=== PATIENT | male | born 1990 | race Caucasian/White ===

== ENCOUNTER → 2020-09-02 11:58 | Outpatient (CLI) | payer BC, SELFPAY ==
--- NOTE | 2020-09-02 12:02 | CT_ITS ---
PROCEDURE: CT ABDOMEN PELVIS W CON CLINICAL INDICATION: ABD WALL BULGE Abdominal hernia COMPARISON: No exams were available for comparison TECHNIQUE: IV Contrast: 75ML Isovue 370 Oral Contrast None Axial images obtained with sagittal and coronal reformats. All CT scans at the facility use one or more dose reduction, viz: automated exposure control, ma/kV adjustment per patient size (including targeted exams where dose is matched to indication, i.e. head), or iterative reconstruction technique. FINDINGS: LOWER THORAX: No acute finding ABDOMEN & PELVIS: The liver, spleen, pancreas, adrenal glands, and kidneys show no acute finding. No intestinal obstruction or free air. No evidence of appendicitis or diverticulitis. No pelvic mass, abnormal fluid collection, or focal inflammatory change of the pelvis. Bulging disc with central disc osteophyte complex noted at L5-S1. There is a small umbilical hernia containing fat.. The hernia sac is slightly directed cephalad. Urinary bladder is somewhat distended. There is a mild amount of retained colonic feces. IMPRESSION: Small umbilical hernia containing fat Bulging disc with small central disc osteophyte complex at L5-S1 Dictated by: Zhen Neal MD 09/02/2020 16:14 Zhen Neal MD in [place] 09/02/2020 16:14
== END ==
PROVIDERS: PCP Family Medicine; Visit Provider Nurse Practitioner Family
DX: R19.00 Intra-abdominal and pelvic swelling, mass and lump, unspecified site (principal)
CPT/HCPCS: 74177; Q9967

== ENCOUNTER 2024-04-27 11:52 | Outpatient (CLI) | payer BC, SELFPAY ==
[2024-04-27 13:23] LABS: Adenovirus,PCR Not Detected (NotDetected); Bordetella Pertussis Not Detected (NotDetected); Chlamydophila Pneumoniae, PCR Not Detected (NotDetected); Coronavirus 19, PCR Not Detected (NotDetected); Coronavirus 229E Not Detected (NotDetected); Coronavirus NL63 Not Detected (NotDetected); Coronavirus OC43 Not Detected (NotDetected); Coronovirus HKU1,PCR Not Detected (NotDetected); Human Metapneumovirus Not Detected (NotDetected); Influenza A, PCR Not Detected (NotDetected); Influenza AH1, 2009 Not Detected (NotDetected); Influenza AH1, PCR Not Detected (NotDetected); Influenza AH3,PCR Not Detected (NotDetected); Influenza B, PCR Not Detected (NotDetected); Mycoplasma Pneumoniae, PCR Not Detected (NotDetected); Parainfluenza 1, PCR Not Detected (NotDetected); Parainfluenza 2, PCR Not Detected (NotDetected); Parainfluenza 3, PCR Not Detected (NotDetected); Parainfluenza 4, PCR Not Detected (NotDetected); Respiratory Syncytial Virus Not Detected (NotDetected); Rhinovirus/Enterovirus Not Detected (NotDetected)
== END 2024-04-27 23:59 | disposition home or self-care (01) ==
LOC: LAB 11:53
PROVIDERS: PCP Family Medicine; Visit Provider Nurse Practitioner Family
DX: R05.9 Cough, unspecified (principal)
CPT/HCPCS: 87633

== ENCOUNTER 2024-10-20 14:53 | Outpatient (CLI) | payer BC, SELFPAY ==
--- OUTSIDE RECORDS SUMMARY | 2024-10-20 14:55 | XMS_ITS | Clinical Summary ---
Author Organization [facility] Address [address] [place] [id number] Phone [email or web address] Care Team Providers Care Dna Sequencing Associate Name Role Phone Martin Kumar MD Primary Care Provider [phone] Allergies Active Allergy Reactions Criticality Noted Date Comments Shellfish-Derived Products Sulfa Antibiotics 10/24/2020 Medications No known medications Active Problems No known active problems Social History Tobacco Use Types Packs/Day Years Used Date Smoking Tobacco: Never Smokeless Tobacco: Never Intimate Partner Violence Answer Date R ecorded Insults You Not on file 08/16/2020 Threatens You Not on file 08/16/2020 Screams at You Not on file 08/16/2020 Physically Hurt Not on file 08/16/2020 Intimate Partner Violence Score Not on file 08/16/2020 Depression Answer Date Recorded PHQ Total Score Not on file 10/27/2021 Stress Answer Date Recorded Stress in your Life Not on file 03/09/2024 Dealing with Stress 3 03/09/2024 Sex and Gender Information Value Date Recorded Sex Assigned at Not on file Legal Sex Male 8:47 AM CDT Gender Identity Not on file Sexual Orientation Not on file Last Filed Vital Signs Vital Sign Reading Time Taken Comments Blood Pressure 132/87 10/24/2020 3:23 PM EDT Pulse 87 10/24/2020 3:23 PM EDT Temperature 36.6 C (97.8 F) 10/24/2020 3:23 PM EDT Respiratory Rate 18 10/24/2020 3:23 PM EDT Oxygen Saturation 99% 10/24/2020 3:23 PM EDT Inhaled Oxygen Concentration - - Weight 92.5 kg (203 lb 14.4 oz) 06/26/2019 9:43 AM EST Height 190.5 cm (6' 3 ) 06/26/2019 9:43 AM EST Body Mass Index 25.49 06/26/2019 9:43 AM EST Plan of Treatment Health Maintenance Due Date Last Done Comments Dental Cleaning/Exam 1988 HIV Screening 1988 Hepatitis C Screening 1988 Annual Preventive Exam 2006 Hep B Infection Screening - Triple Screen 2006 Hepatitis B Immunization (1 of 3 - 19+ 3-dose series) 2007 Tetanus Diphtheria and Pertu ssis Immunization (1 - Tdap) 2007 Covid-19 Immunization (1 - 2 024-25 season) 2024 Influenza Immunization (Seas on Ended) 2025 HIB Immunization Aged Out No longer e ligible based on patient's age to complete this topic HPV Immunization Aged Out No longer e ligible based on patient's age to complete this topic Hepatitis A Immunization Aged Out No longer eligible based on patient's age to complete this topic Pneumococcal: Ped (0 to 5 Yr s) and At-Risk Member (6 to 64 Yrs) Aged Out No longer e ligible based on patient's age to complete this topic Polio Immunization Aged Out No longer eligible based on patient's age to complete this topic Varicella Immunization Aged Out No lo nger eligible based on patient's age to complete this topic Insurance [facility] [facility] [id number] [place] [address] Care Teams Dna Sequencing Associate Relationship Specialty Start Date End Date Martin Kumar MD [address] [place] [address] LUCIUS ALARCON [id number] PCP - General Secretary Office Clerk 10/24/20
--- NOTE | 2024-10-20 14:56 | US_ITS ---
FINAL REPORT CLINICAL HISTORY: lt inguinal hernia FINDINGS: Limited sonographic images were obtained of the soft tissues in the left inguinal region. There is a heterogeneous focus in the region of the left inguinal canal which could represent a small hernia. IMPRESSION: Heterogeneous focus could represent small hernia at the area of interest. CT scan could better evaluate. Reviewed, Interpreted and Dictated by Parish Gonzalez MD Transcribed by Opal Prado Authenticated and [facility]
--- NOTE | 2024-10-20 14:56 | US_ITS ---
FINAL REPORT TECHNIQUE: Ultrasound images of the testicles were obtained bilaterally. Color Doppler images were obtained. CLINICAL HISTORY: LT SIDED INGUINAL HERNIA FINDINGS: The testicles are normal in size and echotexture bilaterally. Arterial flow is identified bilaterally. No intratesticular masses are identified. There are small hydroceles bilaterally. IMPRESSION: No evidence of testicular mass or torsion. Reviewed, Interpreted and Dictated by Parish Gonzalez MD Transcribed by Opal Prado Authenticated and . [facility]
== END 2024-10-20 23:59 | disposition home or self-care (01) ==
LOC: RAD 14:53
PROVIDERS: PCP Nurse Practitioner; Visit Provider Nurse Practitioner
DX: K40.90 Unilateral inguinal hernia, without obstruction or gangrene, not specified as recurrent (principal); R93.5 Abnormal findings on diagnostic imaging of other abdominal regions, including retroperitoneum
CPT/HCPCS: 76870; 76882

== ENCOUNTER 2024-11-04 11:51 | Outpatient (CLI) | payer BC, SELFPAY ==
--- OUTSIDE RECORDS SUMMARY | 2024-11-04 11:54 | XMS_ITS | Clinical Summary ---
Author Organization [facility] Address [address] [place] [address] Phone [email or web address] Care Team Providers Care Coder Operator Name Role Phone Martin Kumar MD Primary Care Provider [phone] Allergies Active Allergy Reactions Criticality Noted Date [...] patient's age to complete this topic Insurance [facility] [place] [facility] Address: [address] [place] [address] [id number] [place] [address] Care Teams Coder Operator Relationship Specialty Start Date End Date Martin Kumar MD [address] [place] [address] LUCI[place] ALARCON [id number] PCP - General Aircraft Stress Analyst 10/24/20
[2024-11-04 11:57] VITALS: BMI 26.2
[2024-11-04 12:11] LABS: Microscopic, Urine URINE MICROSCOPIC (MICROSCOPIC)
[2024-11-04 12:15] LABS: Bilirubin,Urine Negative (Negative); Color,Urine YELLOW (Yellow); Glucose,Urine (UA) Negative (Negative); Hematocrit 48.3 % (42.0-52.0); Hemoglobin 16.1 g/dL (14.1-18.0); Immature Granulocytes % 0.2 %; Ketones,Urine Negative (Negative); Leukocyte Esterase,Urine Negative (Negative); Mean Corpuscular HGB Conc 33.3 g/dL (31.8-35.4); Mean Corpuscular Hemoglobin 29.0 pg (27.0-31.2); Mean Corpuscular Volume 87.0 fl (80-94); Nucleated Red Blood Cells % 0 %; PH,Urine 6.0 (5.0-8.5); Platelet Count 269 K/mm3 (142-424); Protein,Urine Negative (Negative); Red Blood Count 5.55 M/mm3 (4.60-6.20); Red Cell Distribution Width-SD 37.7 fL; Specific Gravity, Urine <= 1.005 (1.005-1.030); Urobilinogen,Urine 0.2 EU/dl (0.2); White Blood Count 5.1 K/mm3 (4.8-10.8)
[2024-11-04 12:27] LABS: Bacteria,Urine Trace /lpf; WBC,Urine Occasional #/hpf (0-3)
[2024-11-04 12:38] LABS: Chloride 99 mmol/L (98-107); Sodium 140 mmol/L (136-145)
[2024-11-04 12:39] LABS: Potassium 4.3 mmoL/L (3.5-5.1)
[2024-11-04 12:42] LABS: Anion Gap 14.3 mEq/L (5-15); Blood Urea Nitrogen 19 mg/dl (9-20); Calcium 9.8 mg/dl (8.4-10.2); Carbon Dioxide 31 mmol/L (22.0-30.0); Creatinine Clearance Estimated 157 mL/min (50-200); Creatinine,Serum 0.90 mg/dl (0.66-1.25); Estimated Glomerular Filt Rate 95 ml/min (>60); GFR (African American) 116 ML/MIN (>60); Glucose 84 mg/dl (74-100)
== END 2024-11-04 23:59 | disposition home or self-care (01) ==
LOC: PREOP 11:52
PROVIDERS: PCP Family Medicine; Visit Provider Surgery
DX: Z01.812 Encounter for preprocedural laboratory examination (principal)
CPT/HCPCS: 80048; 81001; 85025

== ENCOUNTER 2024-11-27 06:02 | Day surgery (SDC) | payer BC, SELFPAY ==
[2024-11-05 13:59] VITALS: BMI 26.2
[2024-11-27] VITALS (11 sets, daily range): BP systolic 114–147; BP diastolic 57–91; PULSE 66–72; RESP 12–18; TEMP 36.2–43; O2SAT 94–98; BMI 26.2
[2024-11-27] MEDS: 0.9 % SODIUM CHLORIDE 1000ML 1,000 ML 25 ML IV (06:35)
--- NOTE | 2024-11-27 07:03 | EXP.ANES.CKL ---
[facility] Disclaimer: The information contained in this section may have been updated after the patient was seen, as this information can be updated by other users. Medical History No significant past medical history Surgical History History of surgical removal of pilonidal cyst History of umbilical hernia repair History of wisdom tooth extraction Family History Other Family history of diabetes mellitus Family history of leukemia Social History (Updated 11/27/24 @ 06:24 by Wendy Vargas RN) Smoking Status: Never smoker alcohol intake: never substance use type: denies use current occupational status: employed Travel in the last 8 weeks?: None household members: family housing: house Have you lived/traveled outside US in past 30 days?: No Contact w/someone who lives/traveled outside US past 30 days?: No Exposure to someone with infectious disease in past 14 days?: No Do you have a fever (greater than 100.4 F or 38 C)?: No Have you tested positive for COVID-19?: No Exposed to someone with COVID-19 in past 14 days?: No Do you have a sore throat?: No Do you have a cough?: No Do you have any weakness?: No Are you experiencing any nausea/vomitting?: No Do you have any diarrhea?: No Are you experiencing any unusual bleeding?: No Do you have any muscle aches/pain?: No Do you have any abdominal pain?: No Are you experiencing loss of taste or smell?: No [facility] Anesthesia Checklist Patient Identification Patient Identification: Arm Band and Verbal (Name & ) Structural Data Admitted From: Home Planned Operative Procedure/s: Open left inquinal hernia repair Consent for Planned Operative Procedure(s) Verified: Yes Verified Documents: Surgical Consent NPO Status Verified Time NPO: 00:00 Additional verifications Anesthesia Reactions: No Hx Blood Transfusions: No Blood Transfusion Reaction: No Airway Assessment Mallampati Score:: Class II C-Spine Mobility Assessed: Yes TMJ Mobility Assessed: Yes Dentition: Good Dentition Neurological Assessment Level of Consciousness: Awake, Alert and Appropriate Hx Seizures: No Numbness or tingling in extremities: No Anesthesia Plan Anesthesia Risk discussed: Yes Anesthesia Plan: Verified ASA Class: I Anesthesia Type: General
[2024-11-27] MEDS: LIDOCAINE 1% 20ML MDV 20 ML (07:30)
--- NOTE | 2024-11-27 08:22 | P.OP_ITS ---
Date of procedure: 11/27/24 Pre-op Diagnosis:: Left inguinal hernia Post-op Diagnosis:: Same Procedure performed:: Open left inguinal hernia Surgeon:: Cosmo Montaño MD [employer]ORTER CLERK:: Mendoza Chen Anesthesia: local and LMA Estimated blood loss (mL): 15 Operative findings:: Superior/lateral direct defect Concomitant indirect defect Operative note:: After informed consent was obtained the patient was taken to the operating room and placed in the supine position. General anesthesia with laryngeal mask airway was achieved. His abdomen and groin/scrotum were prepped and draped in a sterile fashion. After infiltration with local anesthetic an oblique left groin incision was made. A combination of sharp dissection and electrocautery was utilized to transect through Ranjit's fascia to the level of the external aponeurosis. The external aponeurosis was sharply opened. The contents of the canal were carefully elevated. A palpable indirect defect was noted. A superior/lateral direct defect was also noted. An extra-large PerFix plug was placed in the direct defect and secured with interrupted Ethibond. In a similar manner, a large PerFix plug was placed in the indirect defect and secured with Ethibond. The extra-large PerFix overlay was then secured to the shelving edge inferiorly and fascial margin superiorly with interrupted Ethibond. The external aponeurosis was reapproximated with running Vicryl suture. Ranjit's fascia was closed in a similar manner. Skin was then closed with running 3-0 Monocryl STRATAFIX in a subcuticular manner. Dressings were applied and the patient was transferred to recovery in stable condition. Condition: stable Disposition: PACU Specimens:: none Complications:: No immediate
--- NOTE | 2024-11-27 08:33 | P.PNANES_ITS ---
[facility] Anesthesia Record Part I Anesthesia Record I Intake, IV Amount: 700 Hydration: Adequate Estimated blood loss (mL): 0 Urine output (mL): 200 Blood Products used (#): none Blood Pressure: 147/91 SaO2: 97 Pulse Rate: 68 Airway Patency: Patent Respiratory Rate: 12 Temperature: 98.9 F Patient is:: Stable and Somnolent Stable to PACU at:: 08:32
[2024-11-27] MEDS: HYDROCODONE/APAP 5/325 MG TABLET 1 TAB PO (09:28)
[2024-11-27] MEDS: KETOROLAC 30MG/ML VIAL 30 MG IV (09:28)
--- NOTE | 2024-11-27 10:56 | P.PNANES_ITS ---
[facility] Anesthesia Record Part II Anesthesia Record Part II Discharge Time: 09:33 Destination: Surgical Day Care (OP Surgery) PACU nurse assessment reviewed?: Yes Patient Condition:: Good Anesthesia Complications:: None Swallowing reflex intact?: Yes Airway Patency: Patent Cyanosis?: No Blood Pressure: 134/74 SaO2: 97 Respiratory Rate: 18 Pulse Rate: 70 Temperature: 97.2 F Mental Status: Alert & Oriented Pain level:: 5 Nausea and/or vomitting:: None Intake, IV Amount: 0 Hydration: Adequate
[2024-11-27 12:02] LABS: Bilirubin,Urine Negative (Negative); Color,Urine YELLOW (Yellow); Glucose,Urine (UA) Negative (Negative); Ketones,Urine Negative (Negative); Leukocyte Esterase,Urine Negative (Negative); Microscopic, Urine URINE MICROSCOPIC (MICROSCOPIC); PH,Urine 7.5 (5.0-8.5); Protein,Urine Negative (Negative); Specific Gravity, Urine 1.010 (1.005-1.030); Urobilinogen,Urine 0.2 EU/dl (0.2)
== END 2024-11-27 09:33 | disposition home or self-care (01) ==
PROVIDERS: PCP Family Medicine; Visit Provider Surgery
PROC: (CPT 49505; principal; 2024-11-27 07:30)
DX: K40.90 Unilateral inguinal hernia, without obstruction or gangrene, not specified as recurrent (principal); Z88.2 Allergy status to sulfonamides
CPT/HCPCS: 49505; 51702; 81001; C1781; J0690; J1100; J1885; J2003; J2250; J2704; J3010; J7030